=== PATIENT | male | born 2000 | race Two or more races ===

== ENCOUNTER 2025-09-20 12:29 | Emergency (ER) | payer SELFPAY ==
[~2025-09-20] VITALS: Ht 190.5 cm; Wt 79.4 kg
[2025-09-20 12:33] VITALS: BP 162/104; TEMP 98.6
[2025-09-20] MEDS ORDERED: IBUPROFEN 600 MG TABLET ONE (12:55)
[2025-09-20] MEDS: IBUPROFEN 600 MG TABLET PO ONE (12:58)
[2025-09-20 13:21] VITALS: O2SAT 99
== END 2025-09-20 13:16 | disposition home or self-care (01) ==
LOC: ER 12:41
DX: R51.9 Headache, unspecified (principal); Z91.048 Other nonmedicinal substance allergy status; V43.52XA Car driver injured in collision with other type car in traffic accident, initial encounter; Y93.89 Activity, other specified; Y92.410 Unspecified street and highway as the place of occurrence of the external cause; Y99.8 Other external cause status